=== PATIENT | female | born 1985 | race American Indian/Alaskan Native ===

== ENCOUNTER 2022-09-09 15:15 | Outpatient (CLI) | payer OTHER, SELFPAY | END 2022-09-09 15:16 | disposition home or self-care (01) | PROVIDERS: PCP Family Medicine; Visit Provider Family Medicine | DX: Z00.00 Encounter for general adult medical examination without abnormal findings (principal); F41.9 Anxiety disorder, unspecified; Z13.6 Encounter for screening for cardiovascular disorders; Z83.3 Family history of diabetes mellitus | CPT/HCPCS: 80053; 80061 ==

== ENCOUNTER 2025-03-20 15:21 | Outpatient (CLI) | payer OTHER, SELFPAY ==
[2025-03-20 22:04] LABS: Albumin* 4.3 g/dL (3.3-5.0); Chloride* 97 mmol/L (96-114); Potassium* 3.8 mmol/L (3.6-5.1); Sodium* 133 mmol/L (135-149)
[2025-03-20 22:06] LABS: Alanine Aminotransferase* 18 U/L (4-35); Aspartate Amino Transferase* 45 U/L (12-35); Blood Urea Nitrogen* 11 mg/dL (5-24); Creatinine* 0.9 mg/dL (0.5-1.5); Estimated Glomerular Filt Rate 84 ml/min
[2025-03-20 22:07] LABS: Alkaline Phosphatase* 82 U/L (40-150); Anion Gap 4 mEq/L (7-15); Bilirubin Total* 0.3 mg/dL (0.1-1.5); Calcium* 9.5 mg/dL (8.4-10.6); Carbon Dioxide* 32 mmol/L (20-32); Cholesterol* 123 mg/dL (90-199); Glucose* 88 mg/dL (60-115); HDL Cholesterol* 35 mg/dL (>=50); Total Protein* 7.7 g/dL (6.0-8.3); Triglycerides* 133 mg/dL (40-149)
[2025-03-20 23:24] LABS: Chlamydia DNA Amplified* NOT DETECTED (No Detected); GC DNA Amplified* NOT DETECTED (No Detected)
[2025-03-21 02:38] LABS: Vitamin D 25 Hydroxy* 25 ng/mL (30-80)
[2025-03-21 03:02] LABS: HIV 1/2/P24 Combo Screen* Negative (Negative)
[2025-03-21 03:09] LABS: Hepatitis C Virus Antibody* Negative (Negative)
[2025-03-22 20:03] LABS: HPV Source Endocervical
[2025-03-25 14:35] LABS: Pap Test Digital Imaging Done
== END 2025-03-20 15:22 | disposition home or self-care (01) ==
PROVIDERS: PCP Family Medicine; Visit Provider Family Medicine
DX: Z00.00 Encounter for general adult medical examination without abnormal findings (principal); Z12.4 Encounter for screening for malignant neoplasm of cervix; Z11.3 Encounter for screening for infections with a predominantly sexual mode of transmission; Z11.59 Encounter for screening for other viral diseases
CPT/HCPCS: 80053; 80061; 82306; 86592; 86703; 86803; 87491; 87591; 87624; 87625; 88141; 88142; 88175